=== PATIENT | female | born 1975 | race Hispanic/Latino ===

== ENCOUNTER 2018-08-23 20:42 | Emergency (ER) | payer OTHER, SELFPAY ==
[2018-08-23] MEDS ORDERED: Ketorolac Tromethamine 30 MG/ML VIAL ONE (21:08)
== END 2018-08-23 21:41 | disposition home or self-care (01) ==
LOC: ERS 20:42
DX: K02.9 Dental caries, unspecified (principal); I10 Essential (primary) hypertension; Z79.899 Other long term (current) drug therapy
CPT/HCPCS: 96372; J1885

== ENCOUNTER 2018-09-08 16:46 | Emergency (ER) | payer SELFPAY | END 2018-09-08 18:27 | disposition home or self-care (01) | LOC: ERS 16:46 | DX: K04.7 Periapical abscess without sinus (principal); K03.81 Cracked tooth; I10 Essential (primary) hypertension; Z79.899 Other long term (current) drug therapy | CPT/HCPCS: 99283 ==

== ENCOUNTER 2019-03-20 10:33 | Emergency (ER) | payer SELFPAY ==
--- NOTE | 2019-03-20 10:53 | RAD ---
EXAM: Chest PA and lateral: HISTORY: Cough and congestion, x3 days COMPARISON: None FINDINGS: Heart: Normal cardiac silhouette Aorta: Unremarkable Pulmonary vessels: Normal Costophrenic angles: Costophrenic angles are clear. Lungs: No consolidation or masses. Pneumothorax: No pneumothorax Osseous structures: No osseous abnormalities IMPRESSION: No acute cardiopulmonary process.
== END 2019-03-20 11:42 | disposition home or self-care (01) ==
LOC: ERS 10:33
DX: J20.9 Acute bronchitis, unspecified (principal); I10 Essential (primary) hypertension; Z79.899 Other long term (current) drug therapy
CPT/HCPCS: 71046; 94640; J7620

== ENCOUNTER 2024-09-08 22:33 | Emergency (ER) | payer SELFPAY | END 2024-09-09 00:20 | disposition home or self-care (01) | LOC: ERS 22:33 | DX: B34.9 Viral infection, unspecified (principal); I10 Essential (primary) hypertension | CPT/HCPCS: 87428; 99283 ==